=== PATIENT | female | born 1930 | race Caucasian/White ===

== ENCOUNTER 2016-11-08 13:05 | Outpatient (CLI) | payer MEDICARE ==
[~2016-11-08] VITALS: Ht 167.6 cm; Wt 60.0 kg
[~2016-11-08 13:05] MED LIST: COUMADIN7.5 MG PO; DEMADEX20 MG PO; LANOXIN125 MCG PO; LIPITOR10 MG PO; POLYGESIC 5/5001 CAP PO
[2016-11-08] MEDS ORDERED: PEPCID20 MG PO (14:08)
[2016-11-08 14:24] VITALS: BP 139/69; Ht 167.6 cm; Wt 60.0 kg
[2016-11-08] MEDS ORDERED: COUMADIN6 MG PO (14:32)
[2016-11-08] MEDS ORDERED: COLACE100 MG PO (14:35)
[2016-11-08] MEDS ORDERED: CARAFATE1 G PO (14:35)
[2016-11-08] MEDS ORDERED: ISOSORBIDE MONO30 M1 PO (14:36)
[2016-11-08] MEDS ORDERED: ZANAFLEX4 MG PO (14:36)
[2016-11-08] MEDS ORDERED: ENDOCET 10-3251 TAB PO (14:37)
[2016-11-08] MEDS ORDERED: ZOFRAN4 MG PO (14:38)
[2016-11-08] MEDS ORDERED: MACRODANTIN100 MG PO (14:40)
--- NOTE | 2016-11-08 15:09 | NUR ---
1400- IV STARTED TO LEFT FOREARM, PT TOLERATED. NS AT [facility] UNTIL BLOOD IS READY TO TRANSFUSE 1430- PREOP COMPLETED. PT RESTING. VSS 1445- UP OOB WITH ASSIST AND WALKER TO BR, VOIDED WITHOUT DIFFICULTY 1455- PREOP MEDICATIONS ADMINISTERED 1500- FIRST UNIT OF PRBC TRANSFUSING. FAMILY AT BEDSIDE. VSS. WILL MONITOR.
--- NOTE | 2016-11-08 15:46 | NUR ---
PT SITTING UP WITH HOB ELEVATED. EATING SANDWICH TRAY, TOLERATING BLOOD TRANSFUSION AND FOOD AT THIS TIME. VSS. FAMILY CONTINUES TO SIT AT BEDSIDE. NO C/O PAIN, N/V. WILL CONTINUE TO MONITOR.
--- NOTE | 2016-11-08 16:25 | NUR ---
CARE OF PATIENT ASSUMED, REPORT FROM SHARMILA MCKEON RN. PATIENT LYING IN BED, BLOOD TRANSFUSING AT 125 CC/HR, RATE INCREASED TO 175 CC/HR AT THIS TIME. PATIENT DENIES COMPLAINTS OR NEEDS, GRANDDAUGHTER SITTING AT BEDSIDE
--- NOTE | 2016-11-08 20:40 | NUR ---
ONE HOUR POST VITAL SIGNS STABLE. PATIENT SITTING ON SIDE OF BED, DENIES COMPLAINTS. LEFT FOREARM PIV DC'D WITH TIP INTACT. POST TRANSFUSION INSTRUCTIONS REVIEWED AND GIVEN. PATIENT DISCHARGED HOME VIA WHEELCHAIR TO PRIVATE VEHICLE WITH GRANDDAUGHTER
== END 2016-11-08 20:46 | disposition home or self-care (01) ==
LOC: D.OPS 13:05
DX: D64.9 Anemia, unspecified (principal)

== ENCOUNTER 2017-03-28 14:40 | Inpatient (IN) | payer MEDICARE ==
[2016-11-08 14:24] VITALS: BMI 21.3
[~2017-03-28 14:40] MED LIST changes: +CARAFATE1 G PO; +COLACE100 MG PO; +COUMADIN6 MG PO; +ENDOCET 10-3251 TAB PO; +ISOSORBIDE MONO30 M1 PO; +MACRODANTIN100 MG PO; +PEPCID20 MG PO; +ZANAFLEX4 MG PO; +ZOFRAN4 MG PO
[2017-03-28 15:56] LABS: BASOPHILS 0 % (0-2); EOSINOPHILS 0 % (0-7); HEMATOCRIT 33.3 % (36.0-48.0); HEMOGLOBIN 10.2 g/dL (12-16); IMMATURE GRANULOCYTES 0.2 % (0-5); LYMPHOCYTES 6.9 % (15-50); MCH 29.1 pg (26.0-34.0); MCHC 30.6 g/dL (31.0-37.0); MCV 95.1 fL (80.0-100.0); MEAN PLATELET VOLUME 8.7 fL (7.4-10.4); MONOCYTES 3.9 % (2-11); RDW 16.1 % (11.5-14.5); WBC 5.1 10x3/uL (4.8-10.8)
[2017-03-28 16:00] LABS: PLATELET COUNT 271 10x3/uL (130-400)
[2017-03-28 16:02] LABS: APPEARANCE CLEAR (CLEAR); BILIRUBIN NEGATIVE (NEGATIVE); COLOR YELLOW (YELLOW); GLUCOSE NEGATIVE (NEGATIVE); KETONE NEGATIVE (NEGATIVE); LEUKOCYTE ESTERASE NEGATIVE (NEGATIVE); NITRITE NEGATIVE (NEGATIVE); PROTEIN NEGATIVE (NEGATIVE); SPECIFIC GRAVITY 1.005 (1.005-1.020)
[2017-03-28 16:04] LABS: APTT 34.7 SECONDS (22.8-39.4); INR 3.46 (0.85-1.17); PROTIME 35.2 SECONDS (11.6-15.0)
[2017-03-28 16:23] LABS: ALBUMIN 3.3 g/dL (3.4-5.0); ANION GAP 8.6 mmol/L (8-16); BILIRUBIN - TOTAL 0.82 mg/dL (0.2-1.3); CALCIUM 8.3 mg/dL (8.5-10.1); CARBON DIOXIDE 34.4 mmol/L (21.0-32.0); CREATININE - SERUM 0.9 mg/dL (0.6-1.3)
--- NOTE | 2017-03-28 18:40 | NUR ---
PATIENT RECEIVED TO FLOOR FROM ER VIA STRETCHER. PATIENT TRANSFERRED TO BED. POSITIONED FOR COMFORT. PATIENT ON O2@3L WITH SLOW, LABORED BREATHING. FAMILY PRESENT AND STATES "SHE HAS A DNR." ORIENTED TO ROOM. SIDE RAILS UP X2. BED IN LOW POSITION. CALL LIGHT IN REACH.
--- NOTE | 2017-03-28 19:09 | NUR ---
MASOUD RN SPOKE WITH CHIN HELTON APRN REGARDING PATIENT CODE STATUS. CHIN STATES DNR ORDER WAS GIVEN TO ER BY DR MATHIS. ORDER PLACED IN COMPUTER.
--- NOTE | 2017-03-28 20:08 | NUR ---
PATIENT STOPPED BREATHING STILL HAS A PULSE
--- NOTE | 2017-03-28 20:10 | NUR ---
PATIENT'S HEART STOPPED.
--- NOTE | 2017-03-28 21:38 | NUR ---
PAGED THE CORNER.
== END 2017-03-28 23:53 | DRG 536 ==
LOC: D.ER 14:40 → D.MS 15:53
PROVIDERS: Physician Assistant; ADMIT Emergency Medicine
DX: S72.001A Fracture of unspecified part of neck of right femur, initial encounter for closed fracture (principal); W06.XXXA Fall from bed, initial encounter; Z95.1 Presence of aortocoronary bypass graft; I25.2 Old myocardial infarction; Z86.718 Personal history of other venous thrombosis and embolism; Z79.01 Long term (current) use of anticoagulants; Z95.0 Presence of cardiac pacemaker; Z66 Do not resuscitate